=== PATIENT | female | born 1960 | race Caucasian/White ===

== ENCOUNTER 2016-04-15 22:17 | Emergency (ER) | payer SELFPAY ==
[~2016-04-15] VITALS: Ht 162.6 cm; Wt 68.0 kg
[2016-04-15 22:20] VITALS: BP 137/73; PULSE 97; RESP 16; TEMP 97.6; O2SAT 96
[2016-04-15] MEDS ORDERED: SODIUM CHLORIDE 0.9% FLUSH 5 ML FLUSH IVF PRN (22:45)
[2016-04-15] MEDS ORDERED: SODIUM CHLOR 0.9% 1000 ML INJ 1,000 ML IV ONE (22:45)
[2016-04-15 23:09] LABS: AUTOMATED NEUTROPHIL # 5.5 TH/MM3 (1.8-7.7); BASOPHIL # 0.1 TH/MM3 (0-0.2); BASOPHIL % 1.1 % (0.0-2.0); EOSINOPHIL # 0.2 TH/MM3 (0-0.4); EOSINOPHIL % 2.1 % (0.0-4.0); HEMATOCRIT 43.1 % (35.0-46.0); HEMO FLAGS DIFF FINAL; LYMPH % 28.6 % (9.0-44.0); LYMPHOCYTE # 2.8 TH/MM3 (1.0-4.8); MEAN CELL VOLUME 95.2 FL (80.0-100.0); MEAN CORPUSCULAR HGB CONC 34.7 % (32.0-36.0); MONO % 11.7 % (0.0-8.0); NEUT % 56.5 % (16.0-70.0); PLATELET COUNT 232 TH/MM3 (150-450); RED BLOOD COUNT 4.53 MIL/MM3 (4.00-5.30); RED CELL DISTRIBUTION WIDTH 13.8 % (11.6-17.2); WHITE BLOOD COUNT 9.7 TH/MM3 (4.0-11.0)
[2016-04-15 23:34] LABS: BICARBONATE 27.7 MEQ/L (21.0-32.0)
--- NOTE | 2016-04-15 23:53 | PD ---
HPI Chief Complaint: ENT Complaint Time Seen by Provider: 22:34 Travel History International Travel<30 days: No Contact w/Intl Traveler<30days: No Traveled to known affect area: No History of Present Illness HPI 56-year-old female arrives complaining of a fullness sensation in the throat. She also tasted blood in her throat just today. When she lay down to sleep she felt gargling in her throat. 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 She feels as though the apparent mass is growing bigger and is causing pain with swallowing. She has no fever. Onset has been gradual. No similar prior event has occurred. PFSH Past Medical History ?: Not Social History Tobacco Use: No (quit 1 yr prior after 02/24ppd x 40 yrs) Allergies-Medications (Allergen,Severity, Reaction): Coded Allergies: No Known Allergies (Unverified , 04/15/16) Reported Meds & Prescriptions Reported Meds & Active Scripts Active Benadryl Allergy (Diphenhydramine HCl) 25 Mg Tab 25 Mg PO Q6H PRN 10 Days Prednisone 20 Mg Tab 40 Mg PO DAILY 4 Days Take 40 mg (2 tablets) daily for 5 days Review of Systems Except as stated in HPI: all other systems reviewed are Neg General / Constitutional: No: Fever, Chills HENT: Positive: Sore Throat, No: Headaches Physical Exam Narrative GENERAL: 56-year-old female pleasant well-nourished well-developed SKIN: Warm and dry. HEAD: Atraumatic. Normocephalic. EYES: Pupils equal and round. No scleral icterus. No injection or drainage. ENT: No nasal bleeding or discharge. Mucous membranes pink and moist. No tonsillar hypertrophy/erythema/exudate/asymmetry. No visualizable mass. NECK: Trachea midline. No JVD. CARDIOVASCULAR: Regular rate and rhythm. No murmur appreciated. RESPIRATORY: No accessory muscle use. Clear to auscultation. Breath sounds equal bilaterally. GASTROINTESTINAL: Abdomen soft, non-tender, nondistended. Hepatic and splenic margins not palpable. MUSCULOSKELETAL: No obvious deformities. No clubbing. No cyanosis. No edema. NEUROLOGICAL: Awake and alert. No obvious cranial nerve deficits. Motor grossly within normal limits. Normal speech. PSYCHIATRIC: Appropriate mood and affect; insight and judgment normal. Data Data Last Documented VS Vital Signs Date Time Temp Pulse Resp B/P Pulse Ox O2 Delivery O2 Flow Rate FiO2 04/15/16 22:20 97.6 97 16 137/73 96 Room Air VS reviewed Orders Basic Metabolic Panel (Bmp) (04/15/16 22:41) Complete Blood Count With Diff (04/15/16 22:41) Ecg Monitoring (04/15/16 22:41) Iv Access Insert/Monitor (04/15/16 22:41) Oximetry (04/15/16 22:41) Oxygen Administration (04/15/16 22:41) Sodium Chloride 0.9% Flush (Ns Flush) (04/15/16 22:45) Sodium Chlor 0.9% 1000 Ml Inj (Ns 1000 M (04/15/16 22:45) Ct Soft Tiss Neck W Iv Cont (04/15/16 ) Iohexol 350 Inj (Omnipaque 350 Inj) (04/15/16 23:59) Methylprednisolone So Succ Inj (Solumedr (04/16/16 00:15) Diphenhydramine Inj (Benadryl Inj) (04/16/16 00:15) Al-Mag Hy-Si 40-40-4 Mg/Ml Liq (Mag-Al P (04/16/16 00:30) Lidocaine 2% Viscous (Xylocaine 2% Visco (04/16/16 00:30) Labs Laboratory Tests Test 04/15/16 22:48 White Blood Count 9.7 TH/MM3 Red Blood Count 4.53 MIL/MM3 Hemoglobin 14.9 GM/DL Hematocrit 43.1 % Mean Corpuscular Volume 95.2 FL Mean Corpuscular Hemoglobin 33.0 PG Mean Corpuscular Hemoglobin 34.7 % Concent Red Cell Distribution Width 13.8 % Platelet Count 232 TH/MM3 Mean Platelet Volume 7.7 FL Neutrophils (%) (Auto) 56.5 % Lymphocytes (%) (Auto) 28.6 % Monocytes (%) (Auto) 11.7 % Eosinophils (%) (Auto) 2.1 % Basophils (%) (Auto) 1.1 % Neutrophils # (Auto) 5.5 TH/MM3 Lymphocytes # (Auto) 2.8 TH/MM3 Monocytes # (Auto) 1.1 TH/MM3 Eosinophils # (Auto) 0.2 TH/MM3 Basophils # (Auto) 0.1 TH/MM3 CBC Comment DIFF FINAL Differential Comment Sodium Level 139 MEQ/L Potassium Level 4.0 MEQ/L Chloride Level 104 MEQ/L Carbon Dioxide Level 27.7 MEQ/L Anion Gap 7 MEQ/L Blood Urea Nitrogen 14 MG/DL Creatinine 1.02 MG/DL Estimat Glomerular Filtration 56 ML/MIN Rate Random Glucose 125 MG/DL Calcium Level 9.6 MG/DL MDM Medical Decision Making Medical Screen Exam Complete: Yes Emergency Medical Condition: Yes Medical Record Reviewed: Yes Differential Diagnosis Esophageal mass, tracheal mass, [employer]OUNTING [employer], pharyngitis, RPA Narrative Course CBC & BMP Diagram 04/15/16 22:48 CT soft tissue: No mass, no acute abnormality Patient has been resting comfortably throughout her ER stay. She was reassessed at 12:15 AM and found to be resting comfortably. Follow-up with ENT in the morning, Dr. Castro. Etiology unclear. There is no airway compromise. The patient's tolerating fluids without difficulty. Referral to GI also provided. Diagnosis Primary Impression: Throat fullness Referrals: Jerrell Castro MD 1 day Delaney Pulido MD 1 day Additional Instructions: You have a choice when it comes to health care, and we are glad that you chose [facility]. Hopefully, we have met your expectations on today's visit. You are welcome to return to [facility] at any time, as we are committed to meeting the health care needs of our community. Med/Other Pt SpecificInfo: Prescription(s) given Scripts Diphenhydramine (Benadryl Allergy)25 Mg Tab25 Mg PO Q6H PRN (ALLERGIES) 10 Days Ref 0 Prov:Rylan Sosa MD 04/16/16 Prednisone 20 Mg Tab40 Mg PO DAILY 4 Days Ref 0 Take 40 mg (2 tablets) daily for 5 days Prov:Rylan Sosa MD 04/16/16 Disposition: 01 DISCHARGE HOME Condition: Stable Rylan Sosa MD Apr 15, 2016 23:53
[2016-04-15] MEDS ORDERED: IOHEXOL 350 MG/ML 10 ML VIAL (for RAD DIAG) IV ONE (23:59)
--- NOTE | 2016-04-16 00:02 | RADRPT ---
EXAM DATE/TIME: 04/15/2016 23:52 [facility] COMPARISON: No previous studies available for comparison. INDICATIONS : Dysphagia with new mass. IV CONTRAST: 75 cc Omnipaque 350 (iohexol) IV RADIATION DOSE: 14.90 CTDIvol (mGy) MEDICAL HISTORY : None SURGICAL HISTORY : None. ENCOUNTER: Initial ACUITY: 1 day PAIN SCALE: 7/10 LOCATION: Bilateral middle neck TECHNIQUE: Volumetric scanning of the neck was performed. Using automated exposure control and adjustment of th e mA and/or kV according to patient size, radiation dose was kept as low as reasonably achievable to obtain optimal diagnostic quality images. FINDINGS: NASOPHARYNX: The nasopharyngeal airway has a normal configuration. No mucosal thickening or mass is seen. OROPHARYNX: The intrinsic muscles of the tongue are symmetric. The tonsillar pillars are intact. The prevertebr al soft tissues are not thickened. LARYNX: The supraglottic, glottic, and infraglottic structures are intact. PARAPHARYNGEAL: The parapharyngeal space is intact. SALIVARY GLANDS: The parotid and submandibular glands are intact. LYMPH NODES: No enlarged or necrotic-appearing nodes. THYROID: Homogeneous enhancement without evidence of nodule. BONES: Unremarkable. CONCLUSION: Normal examination. Pedro Michel MD on April 16, 2016 at 0:00 Board Certified Radiologist. This report was verified electronically.
[2016-04-16] MEDS ORDERED: BENA25TA3 PO (00:12)
[2016-04-16] MEDS ORDERED: PRED20 PO (00:12)
[2016-04-16] MEDS ORDERED: methylPREDNISolone SOD SUCC 125 MG/2 ML VIAL IV PUSH ONE (00:15)
[2016-04-16] MEDS ORDERED: diphenhydrAMINE HCL 50 MG/ML VIAL IV PUSH ONE (00:15)
[2016-04-16] MEDS ORDERED: ALUMINUM/MAGNESIUM/SIMETH 30 ML CUP PO ONE (00:30)
[2016-04-16] MEDS ORDERED: LIDOCAINE VISCOUS 2% SOLN 15 ML UDC PO ONE (00:30)
[2016-04-16 00:55] VITALS: BP 135/72
== END 2016-04-16 01:09 | disposition home or self-care (01) ==
LOC: NEPE 22:17
DX: J02.9 Acute pharyngitis, unspecified (principal); R13.10 Dysphagia, unspecified; Z87.891 Personal history of nicotine dependence
CPT/HCPCS: 70491; 80048; 85025; 96361; 96374; 96375; 99283; J1200; J2930; J7030; Q9967